=== PATIENT | male | born 2000 | race Hispanic/Latino ===

== ENCOUNTER 2023-04-16 06:37 | Emergency (ER) | payer OTHER ==
[2023-04-16] VITALS (10 sets, daily range): BP systolic 115–128; BP diastolic 61–78
[~2023-04-16] VITALS: Ht 170.2 cm; Wt 65.0 kg
[2023-04-16] MEDS ORDERED: Diph, Acellular Pertussis, Tet 0.5 ML/VIAL (Tdap) SDV IM ONE (07:00)
[2023-04-16] MEDS ORDERED: LIDOcaine HCl 1% (Local Anesth.) 20 ML VIAL STI ONE (07:00)
[2023-04-16] MEDS ORDERED: ONDANSETRON HCl 4 MG/2 ML SDV IV ONE (07:20)
[2023-04-16] MEDS ORDERED: HYDROmorphone HCL 2 MG/AMP IV ONE (07:20)
[2023-04-16] MEDS ORDERED: ceFAZolin Sodium 1 GM in SODIUM CHLORIDE 0.9% 50 ML IV ONE (07:30)
[2023-04-16] MEDS ORDERED: POVIDONE IODINE 0.5 OZ/BTL TOP ONE (08:25)
[2023-04-16] MEDS ORDERED: SODIUM CHLORIDE 1,000 ML BTL IR ONE (08:25)
[2023-04-16] MEDS ORDERED: MOTRIN800 MG PO (08:55)
[2023-04-16] MEDS ORDERED: BACTRIM DS1 TAB PO (08:55)
[2023-04-16] MEDS ORDERED: PERCOCET 5/325M1 TAB PO (08:57)
== END 2023-04-16 09:15 | disposition home or self-care (01) | DRG 605 ==
LOC: ED 06:37
PROC: 0HQGXZZ Repair Left Hand Skin, External Approach (ICD-10-PCS; principal; 2023-04-16)
DX: S61.215A Laceration without foreign body of left ring finger without damage to nail, initial encounter (principal); W23.2XXA Caught, crushed, jammed or pinched between a moving and stationary object, initial encounter; Y93.89 Activity, other specified; Y92.009 Unspecified place in unspecified non-institutional (private) residence as the place of occurrence of the external cause

== ENCOUNTER 2023-04-29 14:12 | Emergency (ER) | payer SELFPAY ==
[2023-04-29] VITALS (7 sets, daily range): BP systolic 89–131; BP diastolic 44–85
[~2023-04-29] VITALS: Ht 170.2 cm; Wt 63.5 kg
[~2023-04-29 14:12] MED LIST: BACTRIM DS1 TAB PO; MOTRIN800 MG PO; PERCOCET 5/325M1 TAB PO
[2023-04-29] MEDS ORDERED: KEFLEX500 MG PO (14:49)
[2023-04-29] MEDS ORDERED: NEOMYCIN-BACITRACIN-POLYMYXIN 0.5 GM/PAK PAK TOP ONE (15:30)
== END 2023-04-29 16:16 | disposition home or self-care (01) | DRG 301 ==
LOC: ED 14:12
DX: I96 Gangrene, not elsewhere classified (principal); S61.211A Laceration without foreign body of left index finger without damage to nail, initial encounter; X58.XXXA Exposure to other specified factors, initial encounter; Z91.199 Patient's noncompliance with other medical treatment and regimen due to unspecified reason